=== PATIENT | female | born 1965 | race Caucasian/White ===

== ENCOUNTER 2019-04-14 15:19 | Inpatient (IN) ==
[2019-04-14] MEDS ORDERED: ASPIRIN PO ONE (15:29)
--- NOTE | 2019-04-14 15:34 | PROVIDER DOCUMENTATION ---
HPI-General Adult - General Chief Complaint: Chest Pain Stated Complaint: CP Time Seen by Provider: 04/14/19 15:28 Source: patient Allergies/Adverse Reactions: Patient Allergies Allergy/AdvReac Type Severity Reaction Status Date / Time Penicillins Allergy HIVES Verified 02/09/19 16:17 Home Medications: Home Medication List Medication Instructions Recorded Confirmed Last Taken Type Hydrocodone/APAP 7.5 mg/325 mg 1 ea PO Q6H PRN PRN #12 tab 02/09/19 Unknown Rx [[place]-7.5] - History of Present Illness -Gen Adult Nature of Presenting Problems: Pt.i s 53 yof that presents with c/o CP that began three days ago. Pt. reports it feels like her left breast is in a vice. She reports SOB that is worse with talking and states that when it first started her left arm was hurting. Pt. reports one episode of vomiting but denies any nausea. She denies any health issues. Pt. reports she took two full [employer]. Location of Pain/Injury: reports: chest. denies: none, head, face, mouth, neck, upper extremity, hand(s), abdomen, back, pelvis, genitalia, lower extremity, feet, upper body, lower body, generalized, other Pain Radiation: reports: arm(s) (left). denies: no radiation, back, buttocks, chest, epigastric, feet, groin, jaw, flank (L), legs (lower), LLQ, LUQ, neck, periumbilical, flank (R), RLQ, RUQ, shoulder(s), scapula, scrotal, sternal notch, suprapubic, legs (upper), urethral, vaginal, other Quality of Pain: reports: pressure, tightness. denies: burning, indigestion, throbbing Severity: reports: moderate. denies: mild, severe Onset/Duration: reports: gradual, 3 days ago Timing: reports: still present, constant. denies: improving, intermittent, getting worse Context/Activities at Onset: reports: none. denies: light activity, moderate activity, vigorous activity, recent emotional stress, recent physical stress, recent trauma history, possible bad food, cold exposure, eating, out of country travel, rest, sleep, sexual activity, other Modifying Factors: improves with: nothing Associated Symptoms: reports: arm pain, chest pain, shortness of breath. denies: denies symptoms, anxiety, back/neck pain, constipation, cough, diaphoresis, diarrhea, dizziness, EENT symptoms, fatigue, fever/chills, genitourinary problems, headaches, heartburn, joint pain, loss of appetite, malaise, muscle aches, sinus congestion/drainage, nausea, rash, seizure, sensory/motor loss, pain with inspiration, swelling/mass in abdomen, syncope, vomiting, weakness, trouble walking, other Similar Symptoms Previously?: Yes Recently seen or treated by another doctor?: No Review of Systems - Adult - REVIEW OF SYSTEMS - ADULT Constitutional: reports: no symptoms reported Eyes: reports: no symptoms reported Ears, Nose, Mouth & Throat: reports: no symptoms reported Cardiovascular: reports: see HPI, chest pain. denies: irregular heart rate, palpitations, syncope Respiratory: reports: see HPI, dyspnea on exertion, shortness of breath. denies: chronic cough, cough, wheezing Gastrointestinal: reports: no symptoms reported Genitourinary: reports: no symptoms reported Musculoskeletal: reports: no symptoms reported Integumentary: reports: no symptoms reported Neurological: reports: no symptoms reported Psychiatric: reports: no symptoms reported Past History - Adult - PAST MEDICAL HISTORY-ADULT Review of Records: reports: Old Records Reviewed, Nursing Assessment Review, Medications Reviewed, Social history reviewed & non-contributory. Major Childhood Illnesses: reports: denies history Cardiovascular: reports: denies history Respiratory: reports: denies history Gastrointestinal: reports: denies history Genitourinary: reports: denies history Musculoskeletal: reports: denies history Neurological: reports: denies history Endocrine/Immune: reports: denies history - PRIOR SURGERIES/PROCEDURES Surgical/Procedure History: reports: reviewed, not pertinent - IMMUNIZATION STATUS Childhood Immunizations: See Nurse Assessment Flu Vaccine: See Nurse Assessment - FAMILY HISTORY Family History: reviewed, not pertinent - SOCIAL HISTORY Smoking: denies Physical Exam-General - PHYSICAL EXAM-ADULT Initial Vital Signs Reviewed: Yes - CONSTITUTIONAL General Appearance: alert, mild distress, obese, anxious. negative: slow to respond, obtunded, combative - EYES Eyes: PERRL/EOMI, pink conjunctivae - HEAD, EARS, NOSE, MOUTH & THROAT HENMT: normocephalic/atraumatic, moist mucous membranes - NECK Neck: non-tender, full range of motion, supple, normal inspection - RESPIRATORY Respiratory: lungs clear, normal breath sounds - CARDIOVASCULAR Cardiovascular: normal peripheral pulses, regular rate, rhythm - GASTROINTESTINAL (ABDOMEN) Abdominal Exam: normal bowel sounds, non tender, soft - LYMPHATIC Lymphatic: no adenopathy - MUSCULOSKELETAL Back Exam: normal inspection, no CVA tenderness, no vertebral tenderness Extremity: normal range of motion, non-tender, normal gait, normal inspection. negative: deformity, erythema, inflammation, swelling, tenderness Peripheral Pulses: radial (R): 2+, radial (L): 2+ - SKIN Integumentary: normal color, normal turgor, warm/dry - NEUROLOGIC Neurologic: grossly normal, no motor/sensory deficits - PSYCHIATRIC Psych/Mental Status: normal thought content, normal thought process, oriented x 3, anxious, tearful. negative: disheveled, depressed affect, paranoid Progress - PLAN OF CARE/RESULTS Progress/Plan/Lab Results: Vital Signs - 8 hr 04/14/19 15:23 Temperature 97.8 F Pulse Rate 88 Respiratory Rate 20 Blood Pressure 187/93 O2 Sat by Pulse Oximetry 98 Orders Category Date Time Status Saline Loc NOW Care 04/14/19 15:29 Active CHEST-PORTABLE [RAD] Stat Exams 04/14/19 15:29 Ordered CBC WITH ELECTRONIC DIFF [HEME] Stat Lab 04/14/19 15:29 Uncollected CK PROFILE [SP CHEM] Stat Lab 04/14/19 15:29 Uncollected COMPREHENSIVE METABOLIC PANEL [CHEM] Stat Lab 04/14/19 15:29 Uncollected PRO B-NATRIURETIC PEPTIDE Stat Lab 04/14/19 15:29 Ordered TROPONIN T Stat Lab 04/14/19 15:29 Uncollected TSH Stat Lab 04/14/19 15:30 Uncollected URINALYSIS W/POSS RFLX CULT [URINALYSIS] Stat Lab 04/14/19 15:30 Uncollected Aspirin Med 04/14/19 15:29 Discontinued 325 mg PO NOW ONE EKG [EKG] Stat Ther 04/14/19 15:29 Ordered Result Diagrams: 04/14/19 15:37 04/14/19 15:37 - EKG 1 Time of EKG reading by physician:: 15:26 EKG Read and Signed by:: Edwin Oliva EKG Interpretation (*Must complete 3 of following elements*): Abnormal Rate: 80 Rhythm: NSR with sinus arrhythmia 2 Time of EKG reading by physician:: 17:30 EKG Read and Signed by:: Edwin Oliva EKG Interpretation (*Must complete 3 of following elements*): Abnormal Rate: 73 Rhythm: NS with sinus arrhythmia - XRAY 1 XRAY Study: Chest ([facility] - [address], [address], [place] [address] [facility] - [address] [place] [address] Department of Imaging Patient: DANITZA SOTO Date : 04/14/19MR#: [id number] : 1965ADM Status: REG ERAcct#: [id number] Age/Sex: 53/FRoom/Bed: Loc: ED Ordering Physician: Kriss Canales Family Physician: Godfrey Aguilar Reason for Procedure: CP ___ Signed EXAM: CHEST-PORTABLE - 04/14/2019 HISTORY: CP TECHNIQUE: Portable chest COMPARISON: None. FINDINGS: Heart size appears within normal limits. Inspiration is mildly shallow. There is subsegmental atelectasis at the left base. There is mild prominence of central vascular markings. There is no dense consolidation, pleural effusion, or pneumothorax identified. IMPRESSION: Mildly shallow inspiration, with mild atelectasis at left base. Mild prominence of central vascular markings. Electronically signed by Jayro Venegas 04/14/2019 4:23 PM 04/14/19 1623 Interpreting Physician: Jayro Venegas MD Dictated Date/Time: 04/14/19 162 cc: Kriss Canales; Tomas Aguilar) XRAY Interpretation: See note - CONSULTS/PCP/HOSPITALIST Notification #1 *Consult/PCP/Hospitalist*: Dr. Luis Time Discussed: 18:21 Reason/Comments: admission Consult Disposition: Will see in ED, Admit Departure - Departure Date of Disposition Decision: 04/14/19 Time of Disposition Decision: 18:21 DIAGNOSIS: Chest pain Qualifiers: Chest pain type: unspecified Qualified Code(s): R07.9 - Chest pain, unspecified Hypothyroid Qualifiers: Hypothyroidism type: unspecified Qualified Code(s): E03.9 - Hypothyroidism, unspecified Disposition: ADMITTED INPATIENT 09 Certified Medical Emergency: Emergent Condition: Stable Referrals and Follow-Ups: Godfrey Aguilar [Primary Care Provider] - - Critical Care Note This patient required my direct & personal management of CC.: No Attestation - Physician/ EMERSON Attestation Patient care was provided by Advanced Practice Provider:: Yes Advanced Practice Provider:: Kriss Canales Advanced Practice Provider documentation review:: The Mid-level provider documentation, treatment plan and medical decision making was reviewed by the physician who agrees with all treatment and medical decision making by the MLP. The physician spent face to face time with patient:: No Advanced Practice Provider documentation review:: Supervising physician onsite and consulted in the evaluation and care of this patient. The physician did not have a face to face encounter with the patient.
[2019-04-14] MEDS ORDERED: NITROGLYCERIN TOP ONE (15:46)
[2019-04-14] MEDS ORDERED: PROTONIX IV ONE (15:49)
[2019-04-14] MEDS ORDERED: SODIUM CHLORIDE 0.9% INJ ONE (15:49)
[2019-04-14] MEDS ORDERED: G.I. COCKTAIL PO ONE (15:49)
--- NOTE | 2019-04-14 16:11 | EKG Report ---
Test Performed on : 04/14/2019 3:23:15 PM Test Reason : CP Blood Pressure : / mmHG Vent. Rate : 080 BPM Atrial Rate : 080 BPM P-R Int : 148 ms QRS Dur : 078 ms QT Int : 392 ms P-R-T Axes : 051 030 057 degrees QTc Int : 452 ms Normal sinus rhythm. with sinus arrhythmia. Possible Left atrial enlargement Nonspecific ST abnormality Abnormal ECG No previous ECGs available Unconfirmed Result
[2019-04-14 16:24] LABS: BASO# 0.03 X1000 (0.0-0.2); BASO% 0.4 % (0.0-0.8); EOS# 0.25 X1000 (0.0-0.7); HEMATOCRIT 41.3 % (37.0-47.0); HEMOGLOBIN 13.8 g/dL (12.0-16.0); IMM GRAN# 0.04 X1000 (0.0-0.04); IMM GRAN% 0.5 % (0.0-0.5); LYMPH# 1.75 X1000 (1.2-3.4); LYMPH% 20.9 % (20.5-51.1); MCH 27.4 PG (27-31); MCHC 33.4 g/dL (33-37); MCV 82.1 FL (81-99); MONO# 0.56 X1000 (0.11-0.59); MONO% 6.7 % (1.7-9.3); MPV 10.7 FL (7.4-10.4); NEUT# 5.74 X1000 (1.4-6.5); NEUT% 68.5 % (42.2-75.2); PLT 275 X1000 (130-400); RBC 5.03 XMIL (4.2-5.4); RDW 14.5 % (11.5-14.5); WBC 8.37 X1000 (4.8-10.8)
--- NOTE | 2019-04-14 16:25 | Diag Imaging Result Doc PS360 ---
EXAM: CHEST-PORTABLE - 04/14/2019 HISTORY: CP TECHNIQUE: Portable chest COMPARISON: None. FINDINGS: Heart size appears within normal limits. Inspiration is mildly shallow. There is subsegmental atelectasis at the left base. There is mild prominence of central vascular markings. There is no dense consolidation, pleural effusion, or pneumothorax identified. IMPRESSION: Mildly shallow inspiration, with mild atelectasis at left base. Mild prominence of central vascular markings. Electronically signed by Jayro Venegas 04/14/2019 4:23 PM
[2019-04-14 16:36] LABS: AGAP 12; ALB/GLOB RATIO 1.4; ALBUMIN 4.5 g/dL (3.5-5.0); ALKALINE PHOSPHATASE 100 U/L (32-104); BUN 18 mg/dL (8-22); CALCIUM 8.8 mg/dL (8.8-10.2); CHLORIDE 103 mmol/L (98-107); CK PROFILE 122 U/L (24-173); COSMO 282; CREATININE 0.6 mg/dL (0.5-0.9); ESTIMATED GFR > 60; GLUCOSE 113 mg/dL (70-104); GOT 28 U/L (10-30); GPT 25 U/L (10-36); POTASSIUM 3.9 mmol/L (3.5-5.1); SODIUM 140 mmol/L (136-145); TCO2 25 mmol/L (25-35); TOTAL BILIRUBIN 0.42 mg/dL (0.20-1.00); TOTAL PROTEIN 7.7 g/dL (6.3-8.3)
[2019-04-14 16:51] LABS: URINE SOURCE CLEAN CATCH
[2019-04-14 16:58] LABS: BILIRUBIN URINE NEGATIVE (NEGATIVE); BLOOD URINE NEGATIVE (NEGATIVE); COLOR YELLOW; GLUCOSE URINE NEGATIVE (NEGATIVE); KETONE URINE NEGATIVE (NEGATIVE); LEUKOCYTES URINE SMALL (NEGATIVE); NITRITE URINE NEGATIVE (NEGATIVE); PH URINE 5.5; PROTEIN URINE NEGATIVE (NEGATIVE); TURBIDITY URINE CLEAR (CLEAR); UR EPITHELIAL CELLS <10 /HPF (<10); URINE BACTERIA 1+ /HPF; URINE RBC <10 /HPF (<10); URINE WBC <10 /HPF (<10); UROBILINOGEN URINE NORMAL (NORMAL)
[2019-04-14] MEDS ORDERED: MORPHINE IV ONE ×2 (17:17→21:19)
[2019-04-14] MEDS ORDERED: ZOFRAN IV ONE ×2 (17:17→21:19)
--- NOTE | 2019-04-14 18:06 | EKG Report ---
Test Performed on : 04/14/2019 5:30:18 PM Test Reason : Repeat Blood Pressure : / mmHG Vent. Rate : 073 BPM Atrial Rate : 073 BPM P-R Int : 148 ms QRS Dur : 082 ms QT Int : 402 ms P-R-T Axes : 047 043 067 degrees QTc Int : 442 ms Normal sinus rhythm. with sinus arrhythmia. Possible Left atrial enlargement Borderline ECG When compared with ECG of 14-APR-2019 15:23, (Unconfirmed) No significant change was found Unconfirmed Result
[2019-04-14 21:48] LABS: INR 0.98; PROTIME 13.1 Seconds (11.0-16.0)
[2019-04-14 21:49] LABS: PTT 29.6 Seconds (22.3-41.8)
[2019-04-14] MEDS ORDERED: LEVAQUIN 750 MG/D5W 750 MG/150 ML IVPB IV SCH (23:45)
[2019-04-15] MEDS ORDERED: MORPHINE IV PRN ×2 (00:26→00:37)
[2019-04-15] MEDS ORDERED: DUONEB (A & A) INH PRN (00:28)
[2019-04-15] MEDS ORDERED: ZOFRAN IV PRN (01:30)
[2019-04-15] MEDS: LOVENOX SUBQ SCH ×2 (01:54→11:57)
[2019-04-15] MEDS: ZOFRAN IV PRN ×2 (02:17→09:10)
--- NOTE | 2019-04-15 05:34 | HISTORY AND PHYSICAL ---
PRIMARY CARE PROVIDER: Dr. Godfrey Aguilar in [place]. DATE AND TIME: 04/14/2019 at 2015. CHIEF COMPLAINT: Chest pain and shortness of breath. HISTORY OF PRESENT ILLNESS: Ms Pena is a 53-year-old female with no reported major medical problems. The patient states that for the past 3 days that she has been having left-sided chest pain that is tight and squeezing in nature. The patient reports this pain has been pretty much constant for 3 days, though got worse today to where she was very uncomfortable. Her stated she was actually crying secondary to the pain. She reports the pain is in her left chest and left breast, and does radiate into her left arm. She has associated symptoms of some lightheadedness, dyspnea, indigestion and nausea. The patient denies any previous cardiac or respiratory history. Though she also reports that she has been having some right lower extremity swelling and has had some tightness behind her knee. The patient in mid January did injure her right ankle at the [facility] in [place] while on a cruise. The patient states that she waited a few days until she returned back to the [place] before she came to our ER for evaluation. She was diagnosed here with a fracture of the right lateral malleolus. She has since followed up with Orthopedic Surgery, and they have placed her in a walking boot. She has had this on for over a month now. The patient states she had just returned to work within the last week. Though her ankle had been swelling at times, not only her right ankle, but her right leg pretty much from the knee down is swollen more than her left. It is slightly erythematous, and warm to the touch in comparison with her left hand. She has reported some tightness behind her knee. She denies headache, cough, abdominal pain or diarrhea. She denies any dysuria or urinary frequency. Other than the reported symptoms in her right lower extremity, she denies any pain, numbness, tingling or swelling in other extremities. Upon evaluation in the ER, the patient's EKG showed normal sinus rhythm with a sinus arrhythmia and possible left atrial enlargement, there is no ST elevation present. Unfortunately, we do not have any previous EKGs to compare this to. A total of 2 series of cardiac enzymes have been negative at this time. She is not afebrile. White blood cell count is within normal limits though we did perform a D-dimer which was elevated at 0.9. Given this and her symptoms, we did perform a CT angiogram pulmonary arteries, though it noted there were no central pulmonary emboli. It did note that a small distal pulmonary emboli would be difficult to exclude entirely secondary to the limitations of the study. Also noted was a small left-sided pleural fluid collection. There was also bilateral lower lobe airspace disease which may represent atelectasis and/or pneumonia, and a focus of airspace disease in the right middle lobe, which could also represent an area of pneumonia. At this time, the patient will be admitted for further evaluation of her chest pain, dyspnea and to rule out possible PE and DVT as well as pneumonia. REVIEW OF SYSTEMS: A 14 point review of systems was conducted with the patient and all were negative except for pertinent positives mentioned in the HPI. PAST MEDICAL HISTORY: The patient denies any past or current medical problems except for her recent fracture of her right lateral malleolus. her fracture did not require surgical intervention. She has been seeing orthopedic surgery, and is in a walking boot at this time. PAST SURGICAL HISTORY: 1. section. 2. Uterine ablation. SOCIAL HISTORY: The patient denies any past or present tobacco or illicit drug use. She only reports very rare occasional alcohol use. FAMILY HISTORY: Positive for her mother having a history of hypothyroidism and colon cancer, and blood clots though she denies any knowledge of her mother having any clotting disorders. Her father had a history of lung cancer. ALLERGIES: Patient reports allergies to penicillin. HOME MEDICATIONS: The patient denies any prescription medication use. DIAGNOSTIC DATA: White blood cell count is 8370, hemoglobin 13.8, hematocrit 41.3, and platelet count is 275,000. PT 13.1, INR 0.98, and PTT is 29.6. D- dimer is 0.96. Sodium 140, potassium 3.9, chloride 103, serum bicarbonate is 25, BUN 18, creatinine 0.6 with a GFR greater than 60, glucose 113, and calcium 8.8. Liver function tests within normal limits. CK 122 with troponin less than 0.01. Second set of cardiac enzymes were negative as well. TSH is 7.08. Urinalysis was obtained via clean catch was positive for a small amount of leukocytes and 1+ bacteria though was negative for protein, glucose, ketones, blood, or nitrites. Initial and repeat EKG showed normal sinus rhythm with a sinus arrhythmia and possible left atrial enlargement. The rate was in the 70s to 80s. QTc range was 442 to 452. Chest x-ray showed mildly shallow inspiration with mild atelectasis at the left base. There is a mild prominence of central vascular markings. CT angiogram pulmonary artery showed no central pulmonary emboli, though a small distal pulmonary emboli would be difficult to exclude entirely secondary to limitations of the study. Image quality noted that diagnostic sensitivity of this study was limited secondary to suboptimal contrast opacification of the segmental and subsegmental pulmonary arteries and patient motion artifact. Also, there was a small left-sided pleural fluid collection noted. There is also airspace disease involving the right and lower lobes and right middle lobe concerning for multifocal pneumonia. PHYSICAL EXAMINATION: VITAL SIGNS: Heart rate 70, respirations 18, blood pressure 152/77, and oxygen saturation is 97% on room air. GENERAL: Ms. Pena is a pleasant 53-year-old female. She was resting on the ER stretcher. She was in no acute distress. She was awake, alert, and able to answer questions appropriately. The patient reports at this time that she still is experiencing some chest pain as well as shortness of breath. HEENT: Head is atraumatic, normocephalic. Pupils are equal, round, and reactive to light, were 3 mm bilaterally and brisk. Oral mucosa is moist. Oropharynx is clear. NECK: Supple. Trachea midline. No carotid bruits noted upon auscultation bilaterally. CARDIOVASCULAR: Patient has S1-S2 present. No murmurs, gallops, or rubs appreciated with a regular rate and rhythm. PULMONARY: Patient has symmetrical chest expansion bilaterally. Lung sounds in upper lung le were clear to auscultation, though she did have crackles noted in bilateral bases. This was slightly worse on the left. The patient is in no respiratory distress at this time. ABDOMEN: Patient's abdomen is soft and nontender. Does not appear to be distended though she does have a protuberant abdomen noted. Bowel sounds are present in all 4 quadrants. EXTREMITIES: No cyanosis noted though the patient does have swelling noted in her right lower extremity from her knee down. Her right lower extremity is more swollen, erythematous and has warmth that is noted that is worse than her left lower extremity. She has had a recent right lateral malleolus fracture. She still does have some swelling noted at the right lateral malleolus. Pulse, motor and sensory is intact in all extremities. Radial and pedal pulses were 2+ bilaterally. The patient does have a walking boot noted onto her right lower extremity as well. INTEGUMENTARY: The patient's skin is pink, warm, and dry. NEUROLOGICAL: Patient is alert and oriented to person, place, time, and situation. She is able to move all extremities. There were no focal neurological deficits noted. ASSESSMENT AND PLAN: 1. Chest pain. 2. Dyspnea. 3. Rule out pulmonary embolism and DVT. For treatment of # 1, # 2, and # 3. At this time, there is a high suspicion that the patient possibly has a pulmonary embolism. Though due to the diagnostic sensitivity of the study limited secondary to suboptimal contrast opacification and segmental and subsegmental pulmonary arteries and patient motion artifact, they were unable to completely rule out the possibility of a small distal pulmonary emboli. There were no central pulmonary emboli noted. Though the patient's D-dimer was elevated, she is having symptoms of chest pain and shortness of breath. She does have a recent right lateral malleolus fracture, and has had decreased mobility secondary to this. She is also reporting that she has been having right lower extremity swelling, erythema and tightness behind her right knee. She also has increased warmth in this extremity as well. We will continue with the series of cardiac enzymes. We will repeat EKG in the morning. We have ordered echocardiogram. She has been given 325 mg aspirin p.o., and we will continue with aspirin 81 mg p.o. daily. We have ordered for V/Q lung scan as well as a right lower extremity venous Doppler. Though given her symptoms and CT angiogram pulmonary artery findings we will go ahead and place the patient with anticoagulation of Lovenox 1 mg/kg subcutaneous every 12 hours. We have also placed orders for hypercoagulable workup as well. The patient at this time is maintaining adequate oxygen saturations on room air. We are ruling out suspicion of pulmonary embolism given her CT angiogram pulmonary artery findings, and possibility of multifocal pneumonia. We have placed a consult with Dr. Arteaga with Cardiology and Dr. Hernandez with Pulmonology. We will await their evaluation and further recommendations for management. She has been placed on the PVC unit with continuous cardiac telemetry and frequent vital signs for close monitoring. 4. Possible multifocal pneumonia. The patient has not reported fever, and has not been febrile. She is dyspneic. She does have crackles noted in bilateral lung bases. She has had recent decreased mobility due to a right lateral malleolus fracture. We have obtained blood cultures. We have ordered sputum culture. We will do aggressive pulmonary toilet with incentive spirometry, p.r.n. DuoNeb treatments as needed. We have placed her with antibiotics of Levaquin 750 mg IV q.24 hours for community-acquired pneumonia. 5. Asymptomatic bacteriuria. The patient does have small leukocytes noted with 1+ bacteria though is not reporting any urinary symptoms. Urine culture is pending. We will continue to follow. 6. Deep vein thrombosis prophylaxis is being provided with above-mentioned Lovenox 1 mg/kg subcutaneous every 12 hours. The patient will be placed on the PVC unit. She will have continuous cardiac telemetry and frequent vital signs. We will repeat a CBC and BMP in the morning as well as we a series of cardiac enzymes. Further orders and recommendations pending hospital course, diagnostic studies, and physician evaluation. Dictated by LINDA Seo for Shawn Lugo MD I have performed a face to face diagnostic evaluation. Labs/ Xrays- reviewed. Exam- chest - clear, CV- regular. A/P- Chest pain, Possible PTE- Admit, Lovenox, Pulmonary consult. Dr. Lugo cc: Shawn Lugo MD [facility]
[2019-04-15] MEDS: PROTONIX PO SCH ×2 (05:55→06:12)
[2019-04-15] MEDS: TYLENOL PO PRN ×2 (05:55→20:39)
--- NOTE | 2019-04-15 07:02 | Diag Imaging Result Doc PS360 ---
EXAM: CT ANGIOGRM PULMONARY ARTERIES 04/14/2019 HISTORY: Chest Pain,SOB,Elevated D-Dimer TECHNIQUE: This exam was performed using automated exposure control, adjustment of mA or kV according to patient size, and/or use of iterative reconstruction technique. COMMENT: 3-D MIPS were performed. There are no previous studies. There is a very small right pleural effusion and a somewhat larger left pleural effusion. Contrast opacification of the distal pulmonary artery branches is suboptimal and there is some motion artifact reducing the resolution of the study, however there are no appreciable filling defects, certainly not in the main pulmonary arteries. The aorta is normal in caliber and there is no evidence of dissection. There is profound hepatic steatosis. There is no evidence of significant adenopathy. There are some spondylotic changes in the thoracic spine. There is some increased interstitial opacity in the lung bases particularly the left lower lobe and inferior lingula. There are some subpleural opacities in the lateral inferior right middle lobe. There is dependent atelectasis in the right lower lobe. There is some platelike atelectasis in the medial right upper lobe. IMPRESSION: No evidence of pulmonary emboli. Pleural effusions. Atelectasis and/or pneumonia plus minus interstitial pulmonary edema. Electronically signed by Luis M Burr 04/15/2019 6:59 AM
[2019-04-15 07:19] LABS: BASO% 0.2 % (0.0-0.8); EOS% 0.9 % (0.0-10.0); HEMATOCRIT 42.5 % (37.0-47.0); HEMOGLOBIN 13.7 g/dL (12.0-16.0); IMM GRAN% 0.3 % (0.0-0.5); LYMPH% 13.4 % (20.5-51.1); MCH 27.3 PG (27-31); MCHC 32.2 g/dL (33-37); MCV 84.8 FL (81-99); MPV 10.8 FL (7.4-10.4); NEUT% 79.2 % (42.2-75.2); PLT 257 X1000 (130-400); RBC 5.01 XMIL (4.2-5.4); RDW 14.7 % (11.5-14.5); WBC 9.03 X1000 (4.8-10.8)
[2019-04-15 07:20] LABS: BASO# 0.02 X1000 (0.0-0.2); EOS# 0.08 X1000 (0.0-0.7); IMM GRAN# 0.03 X1000 (0.0-0.04); LYMPH# 1.21 X1000 (1.2-3.4); MONO# 0.54 X1000 (0.11-0.59); NEUT# 7.15 X1000 (1.4-6.5)
[2019-04-15 07:41] LABS: HEMOGLOBIN A1C 5.3 % (4.8-6.0)
[2019-04-15 07:43] LABS: AGAP 12; BUN 14 mg/dL (8-22); CALCIUM 9.1 mg/dL (8.8-10.2); CHLORIDE 100 mmol/L (98-107); COSMO 275; CREATININE 0.7 mg/dL (0.5-0.9); ESTIMATED GFR > 60; GLUCOSE 110 mg/dL (70-104); POTASSIUM 4.4 mmol/L (3.5-5.1); SODIUM 137 mmol/L (136-145); TCO2 25 mmol/L (25-35)
[2019-04-15] MEDS ORDERED: ASPIRIN PO SCH (09:00)
--- NOTE | 2019-04-15 11:16 | EKG Report ---
Test Performed on : 04/15/2019 09:42:07 AM Test Reason : chest pain Blood Pressure : / mmHG Vent. Rate : 070 BPM Atrial Rate : 070 BPM P-R Int : 158 ms QRS Dur : 078 ms QT Int : 420 ms P-R-T Axes : 052 044 059 degrees QTc Int : 453 ms Normal sinus rhythm. Possible Left atrial enlargement Borderline ECG When compared with ECG of 14-APR-2019 17:30, (Unconfirmed) No significant change was found Confirmed by Phoebe Ayala MD ([id number]) on 04/16/2019 8:30:26 AM
--- NOTE | 2019-04-15 13:09 | PROGRESS NOTE ---
DATE: 04/15/2019 SUBJECTIVE: Patient has no major complaints. Chest pain is atypical. There is a concern over DVT which she was admitted for. Her exam is really unremarkable. She does have varicose veins and swelling in her lower extremities. Her workup though is negative. She has had a CTA that was negative. I guess we are ordering a V/Q just because she is high risk to make sure there is no perfusion defects. I suppose if that is negative, may be able to get her home. I am waiting on the [employer] consultant evaluation. We have a Cardiology and Pulmonary consult. If those feel that that is stable, she could possibly go home. It does look like a possible pneumonia may be related to other issues, but I do not think she has a DVT at this time. We did do a hypercoagulable workup, but she does not have a clot, so not sure what to do with that information unfortunately, but will continue to monitor. Her D-dimer is elevated, but she had a right ankle fracture, so her D-dimer is possibly going to be persistently elevated. It is not sensitive for PE or DVT. It can be specific if it is negative, but in this case, it was very likely to be positive in the setting of trauma and a fracture. In any case, anticipate hopefully discharging her later today or in the morning. cc: Alfa Llanes MD
--- NOTE | 2019-04-15 13:26 | CARDIOLOGY CONSULTATION ---
DATE: 04/15/2019 CHIEF COMPLAINT ON PRESENTATION: Chest pain. HISTORY OF PRESENT ILLNESS: Ms. Pena is a 53-year-old female who presents with complaints of chest pain that initially started on as a waxing and waning discomfort with no exertional component. These gradually prolonged in their nature up until a point on Monday when they were nearly continuous. Again, no exertional component. She had one episode of emesis occurring earlier in the course of symptoms but overall, she had no other associated symptoms. No exertional component. She denies any orthopnea. No previous heart history that she is aware of. PAST MEDICAL HISTORY: She is not aware of any. SOCIAL HISTORY: She is . is present in the room. Rare alcohol. No tobacco. FAMILY HISTORY: Mother has a history of hypothyroidism and colon cancer. Father had a history of lung cancer. Possible blood clots in her mother. REVIEW OF SYSTEMS: Ten system review of systems is negative except for those things mentioned in the HPI. PHYSICAL EXAMINATION: She is afebrile. Her current heart rate is 71. Blood pressure 138/70. Her O2 saturation most recently was 94% on room air. General: No acute distress. HEENT: Oropharynx is moist. Normal dentition. Eye examination shows pink conjunctivae and white sclerae. Neck: Examination shows no obvious thyromegaly or thyroid tenderness. Cardiovascular: She sounds to be in a regular rate and rhythm. She has no obvious murmurs. She has no S3. She has no lower extremity edema. Chest Examination: Clear bilaterally. She has no increased work of breathing. Abdomen: Soft, nontender. Musculoskeletal Examination: She has some tenderness to palpation in the right lower leg which is consistent with a fracture that she suffered in that area in January. Neurological: She is moving all extremities well. She has no lateralizing deficits. Psychiatric: She is alert, oriented, pleasant. Normal mood and affect. PERTINENT DATA: Her CTA of her chest shows no clear evidence of pulmonary emboli but there was a suboptimal contrast opacification in the more distal branches and no obvious filling defects. Profound hepatic steatosis was noted. Small right pleural effusion with a somewhat larger left pleural effusion. Noted to have atelectasis and/or pneumonia plus or minus interstitial pulmonary edema. Her initial electrocardiogram performed on the at 15:23 shows sinus rhythm. No obvious ischemic changes. Subsequent EKG occurring on the at 17:30 shows sinus rhythm with no acute ischemic changes. Normal intervals. Her final EKG on the at 9:42 shows sinus rhythm with no acute ischemic changes. Her white count is 9, hematocrit is 42, platelet count 257,000. Her D-dimer is 0.96. Her sodium is 137, potassium is 4.4, BUN 14, creatinine 0.7. Cardiac enzymes are negative. She has a proBNP of 187. A TSH of 7.08 and free T4 of 1.03. ASSESSMENT: Ms. Pena is a 53-year-old female who presents with chest discomfort. PLAN: She has atypical for coronary ischemia chest discomfort. She does a have a mild elevation in her D-dimer with a recent episode of immobility from a right lower extremity injury. Presently, I cannot clearly explain the etiology of her pleural effusions. She does not have an elevated white count, cough, or recent complaints of fever but there were suggestions of possible infiltrates on her lung studies. A V/Q scan has been ordered. In addition, we are awaiting the results of her echocardiogram. She has a gallbladder ultrasound ordered as well. I do not have any acute recommendations presently. She has an aspirin ordered, which I would agree with. cc: Gaudencio Arteaga MD
--- NOTE | 2019-04-15 14:00 | Diag Imaging Result Doc PS360 ---
EXAM: LUNG SCAN / VQ 04/15/2019 HISTORY: Chest Pain,SOB,Elevated D-dimer TECHNIQUE: Ventilation perfusion lung scan, 40.5 mCi of technetium 99m DTPA aerosol and 5.7 mCi of technetium 90 9M MAA intravenously COMMENT: There is no evidence of ventilation/perfusion mismatch. There are no apparent perfusion defects. IMPRESSION: Normal study. Electronically signed by Luis M Burr 04/15/2019 1:58 PM
--- NOTE | 2019-04-15 14:28 | Diag Imaging Result Doc PS360 ---
EXAM: US GB < RUQ (LIMITED) HISTORY: elevated liver enzymes TECHNIQUE: Right upper quadrant ultrasound COMPARISON: None. FINDINGS: There is fatty infiltration of the liver. Normal right kidney. No hydronephrosis. No ascites in the right upper quadrant. The aorta, inferior vena cava, and pancreas are all obscured. Large gallstone. Common bile duct is poorly seen. IMPRESSION: 1.Fatty infiltration of the liver 2.Cholelithiasis Electronically signed by Waqar Martinez 04/15/2019 2:26 PM
[2019-04-15] MEDS ORDERED: SODIUM CHLORIDE 0.9% INJ SCH (15:00)
--- NOTE | 2019-04-15 16:48 | ECHO REPORT ---
ORDER DATE: 04/15/2019 MEASUREMENTS: 1. Septal thickness 1.1. 2. Left ventricular internal diameter in diastole 5.6. 3. Posterior wall thickness 1.1. 4. Left ventricular internal diameter in systole 3.4. 5. Aortic root 3.1. 6. Left atrium 3.8. SUMMARY: 1. Technically difficult study due to limited acoustic window quality. 2. Aortic valve is trileaflet and opens normally on 2-dimensional images. Peak gradient across aortic valve is 10 to 15 mmHg. Mitral and tricuspid valves are without evidence of structural abnormality while pulmonic valve was not well demonstrated. There is very mild mitral regurgitation and trace tricuspid regurgitation. The aortic root is normal in size. 3. Normal left ventricular dimension suggested on 2-dimensional images. Estimated left ventricular ejection fraction appears to be at least 65%. No regional wall motion abnormalities are evident. Left atrium, right atrium, right ventricle are normal in size with grossly preserved right ventricular systolic function. 4. No pericardial effusion. 5. Appearance of inferior vena cava suggests normal central venous pressure. CONCLUSIONS: 1. Technically difficult study. 2. Very mild mitral regurgitation. 3. Estimated left ventricular ejection fraction at least 65% without regional wall motion abnormality evident. cc: Dariusz Billy MD
--- NOTE | 2019-04-15 18:39 | GENERAL SURGERY CONSULTATION ---
DATE: 04/15/2019 REASON FOR CONSULTATION: Gallstones. HISTORY OF PRESENT ILLNESS: This is a 53-year-old female who returns from a trip to [place] at the end of January. She had a right ankle fracture but has been healing from that and return to work a few weeks ago. She seemed to be doing fine until 4 days ago she experienced some nausea and vomiting, but that has subsided. She also began having left-sided chest pain especially with deep breaths, and associated shortness of breath. Those symptoms have been intermittent for the last 3 days. They are not related to eating. Her bowel movements have been normal. She denies fever. Currently, she is without chest pain. She denies any abdominal pain throughout this time. The pain in her left chest was described as a heavy pressure-like sensation. PAST MEDICAL HISTORY: None. PAST SURGICAL HISTORY: C-sections. HOME MEDICATIONS: None. ALLERGIES: Penicillin. FAMILY HISTORY: Her mother had hypothyroidism and colon cancer. Her father had lung cancer. SOCIAL HISTORY: Negative for tobacco. She drinks alcohol occasionally. No illicit drug use. 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 REVIEW OF SYSTEMS: Ten systems reviewed and negative except as noted above. PHYSICAL EXAMINATION: Vital Signs: Temperature 97.8 degrees, pulse 71, respirations 16, blood pressure 130/70. O2 saturation 94%. General: She is a well-developed, well-nourished female in no distress who looks her stated age. HEENT: Normocephalic, atraumatic. Extraocular muscles intact. Pupils equal, round, reactive to light. Sclerae anicteric. Neck: Supple. No thyromegaly. Cardiovascular: Regular rate and rhythm. Respiratory: Bilateral breath sounds. No increased work of breathing. Gastrointestinal: Abdomen soft, nontender, nondistended. She is obese. No organomegaly or mass. Extremities: No clubbing, cyanosis, or edema. Skin: Warm and dry. No rash. Musculoskeletal: Moves all extremities equally and well. Skin: Warm and dry. No rash. Musculoskeletal: Moves all extremities equally and well. LABORATORY: CBC and metabolic profile reviewed and unremarkable. Troponin and CK are normal. LFTs normal. Urinalysis negative. IMAGING: A chest x-ray shows some mildly prominent central vascular markings and mild atelectasis of the left base. A lung V/Q scan was negative. A CT angiogram of the chest revealed no pulmonary emboli. There are pleural effusions, more so on the left than the right, and there is atelectasis and/or pneumonia and some interstitial pulmonary edema. Abdominal ultrasound which shows 1 large gallstone. ASSESSMENT AND PLAN: A 53-year-old female with left-sided chest pain and shortness of breath of unclear etiology but possibly pneumonia related. I do not think her symptoms are referable to the gallstone and it is asymptomatic at this time. Should she develop any more specific symptoms of biliary colic or cholecystitis, I will be happy to re-evaluate. The patient can follow up with me as needed in the future. cc: Alexx Lynne MD
--- NOTE | 2019-04-15 20:36 | PULMONOLOGY CONSULTATION ---
DATE: 04/15/2019 REQUESTING CLINICIAN: Dr. Llanes. REASON FOR CONSULTATION: Dyspnea, rule out possible PE. HISTORY OF PRESENT ILLNESS: Ms. Pena is a 53-year-old white female, never smoker, with morbid obesity and a BMI of greater than 50 but otherwise in good health who developed chest pain and left arm pain that progressed for approximately 3 days prior to presenting to the emergency room. The patient describes breast pain as a vice-like sensation. She was not clear whether it was worse with coughing, movement or deep breathing. She did have 1 episode of nausea and vomiting but denies aspiration event. The patient does report traveling to [place] in January with injury to the right ankle. She currently is in a walking boot for a fracture to the right lateral malleolus. REVIEW OF SYSTEMS: Otherwise negative. She denies cough or sputum production, she denies fevers or chills, she denies dysphagia, she denies tick exposure, she denies reflux, she denies history of lupus or other connective tissue diseases. SOCIAL HISTORY: She has occasional alcohol use. No tobacco use. FAMILY HISTORY: Positive for colon cancer, hypertension and lung cancer. REVIEW OF SYSTEMS: As noted in the HPI but is otherwise negative. PHYSICAL EXAMINATION: General: Reveals an obese white female who appears comfortable and no distress. She has been afebrile the entire hospital stay. Blood pressure 147/66, heart rate 88, respiratory rate 17, oxygen saturation 96% on room air. HEENT: Pupils are equal and reactive. Oropharynx appears clear. Neck: Supple. Chest: Reveals slight decreased breath sounds left base with faint crackles. Cardiac: S1, S2. Abdomen: Obese and soft. Extremities: Without edema. LABORATORIES: Chest x-ray reveals some inflammation/small pleural effusion at the left base with smaller effusion at the right base. No evidence of pulmonary emboli. No evidence of mediastinal inflammation. Minor atelectasis noted in the right lower lobe. White blood count 9.03, hemoglobin 13.7, platelet count 257,000. Sodium 137, potassium 4.4, chloride 100, bicarbonate 25, BUN 14, creatinine 0.7. V/Q scan was within normal limits. Echocardiogram reveals normal LV function with mild mitral regurgitation. IMPRESSION: A 53-year-old with pleural effusion, pleural inflammation, pleural pleurodynia suspected although not classic presentation, dyspnea, nonspecific parenchymal changes. The patient appears to have a pleurisy type component, although she does not report pain with inspiration or with movement. She does not have any evidence of pulmonary emboli. I suspect that this is infectious/inflammatory in nature. She continues to improve without specific treatment. RECOMMENDATIONS: 1. Check a QuantiFERON gold TB test, although she does not have definite history of TB exposure. 2. Check a connective tissue cascade. 3. Check a C-reactive protein for baseline. 4. From a pulmonary standpoint, she could be discharged home 04/16/2019 if she continues to improve. I will be glad to follow up with this patient in 2 weeks with a routine chest x-ray and to review her labs and to ensure she continues to improve. cc: Parish Hernandez MD
[2019-04-15] MEDS: PEPCID IV SCH (20:39)
[2019-04-16] MEDS: PROTONIX PO SCH (06:20)
[2019-04-16 07:01] LABS: BASO# 0.02 X1000 (0.0-0.2); BASO% 0.3 % (0.0-0.8); EOS# 0.23 X1000 (0.0-0.7); EOS% 3.8 % (0.0-10.0); HEMATOCRIT 41.1 % (37.0-47.0); HEMOGLOBIN 13.2 g/dL (12.0-16.0); IMM GRAN# 0.02 X1000 (0.0-0.04); IMM GRAN% 0.3 % (0.0-0.5); LYMPH# 1.54 X1000 (1.2-3.4); LYMPH% 25.1 % (20.5-51.1); MCH 27.4 PG (27-31); MCHC 32.1 g/dL (33-37); MCV 85.4 FL (81-99); MONO# 0.48 X1000 (0.11-0.59); MONO% 7.8 % (1.7-9.3); MPV 10.6 FL (7.4-10.4); NEUT# 3.84 X1000 (1.4-6.5); NEUT% 62.7 % (42.2-75.2); PLT 229 X1000 (130-400); RBC 4.81 XMIL (4.2-5.4); RDW 14.5 % (11.5-14.5); WBC 6.13 X1000 (4.8-10.8)
--- NOTE | 2019-04-16 07:10 | EKG Report ---
Test Performed on : 04/16/2019 06:54:05 AM Test Reason : chest pain Blood Pressure : / mmHG Vent. Rate : 071 BPM Atrial Rate : 071 BPM P-R Int : 158 ms QRS Dur : 084 ms QT Int : 412 ms P-R-T Axes : 054 048 068 degrees QTc Int : 447 ms Normal sinus rhythm. Normal ECG When compared with ECG of 15-APR-2019 09:42, (Unconfirmed) No significant change was found Confirmed by Phoebe Ayala MD ([id number]) on 04/16/2019 8:30:55 AM
[2019-04-16 07:20] LABS: AGAP 12; BUN 12 mg/dL (8-22); CHLORIDE 103 mmol/L (98-107); COSMO 279; CREATININE 0.6 mg/dL (0.5-0.9); ESTIMATED GFR > 60; GLUCOSE 98 mg/dL (70-104); SODIUM 140 mmol/L (136-145); TCO2 25 mmol/L (25-35)
[2019-04-16 08:34] VITALS: BP 150/76
[2019-04-16] MEDS: PEPCID IV SCH (08:35)
[2019-04-16] MEDS ORDERED: LEVAQUIN PO ONE (10:41)
[2019-04-16] MEDS ORDERED: ATIVAN IV ONE (12:30)
--- NOTE | 2019-04-16 13:21 | DISCHARGE SUMMARY ---
ADMISSION DATE: 04/15/2019 DISCHARGE DATE: 04/16/2019 DISCHARGE DIAGNOSES: 1. Atypical chest pain. 2. Pneumonitis. Presume possible pneumonia versus interstitial pneumonia. 3. Cholelithiasis. PROCEDURES: None. Rule out DVT. Briefly, this is a 53-year-old female who has had a right ankle fracture and developed left-sided chest pain unclear, but that has been since January. She has had difficulty ambulating and is not ambulating as much. The patient is stable. DVT and PE was ruled out with venous Dopplers, a V/Q scan, and a CT angiogram. There was question of pneumonia based on her scan, but there was no fever. She had no cough. She had no temperature. She did get a hypercoagulable workup and all that was negative but again she did not have a blood clot. Her CRP was mildly elevated. LDL was 92. TSH was elevated but her free T4 was normal which is consistent with sick euthyroid. She had a pulmonary consult, a cardiology consult, and a surgical consult. Her echocardiogram was normal EF of 65% with no wall motion abnormality. Abdominal ultrasound showed fatty liver and cholelithiasis. Cardiology did not feel this was likely noncardiac. We did not clearly have a reason for her pleural effusions, although we ended up treating her as pneumonia. Dr. Hernandez evaluated her and felt that she could be discharged with follow-up chest x-ray and he ordered connective tissue cascade, C-reactive protein, QuantiFERON. In any case she overall felt better. She did have some intermittent chest pain, but she was felt stable for discharge on the . She was given a course of Levaquin 750 for 7 days, 2 view x-ray in 1 week and follow up with Dr. Hernandez and then an outpatient stress test, which is to be set up by the [facility]. Dr. Velazco evaluated the patient. Since she had no pain, nausea, vomiting, did not feel that her cholelithiasis was symptomatic and it could be monitored as an outpatient. DISCHARGE CONDITION: Stable. 32 minute discharge. cc: MD Parish Luque MD Dr. Johnson Dr. Robert Tall
--- NOTE | 2019-04-17 08:35 | Extremity Venous Study ---
PROCEDURE NAME: Venous U/S Right Leg - 04/15/2019 REFERRING PHYSICIANS: Amina and Shraddha. TECHNICIANS: Dawit and Mitul. INDICATIONS: Right leg fracture and elevated D-dimer. FINDINGS: The deep and superficial veins of both lower extremities were imaged throughout their course. They are compressible, patent without thrombus. INTERPRETATION: No DVT or SVT of either lower extremity. cc: Alexx Lynne MD
== END 2019-04-16 12:19 | disposition home or self-care (01) | DRG 194 ==
LOC: ED 15:19 → SUATTDRO 21:03 → 3N 21:03 → 2N 04-15 00:56
PROVIDERS: ATTEND Internal Medicine